=== PATIENT | male | born 1995 | race Hispanic/Latino ===

== ENCOUNTER 2017-08-19 01:31 | Emergency (ER) | payer SELFPAY ==
[~2017-08-19] VITALS: Ht 180.3 cm; Wt 69.5 kg
[2017-08-19 06:03] VITALS: BP 116/72
== END 2017-08-19 06:03 | disposition left against medical advice (07) | DRG 156 ==
LOC: EDBD 01:31 → ED 01:31
PROC: 09C4XZZ Extirpation of Matter from Left External Auditory Canal, External Approach (ICD-10-PCS; principal; 2017-08-19)
DX: T16.2XXA Foreign body in left ear, initial encounter (principal); X58.XXXA Exposure to other specified factors, initial encounter; Z91.19 Patient's noncompliance with other medical treatment and regimen

== ENCOUNTER 2017-08-24 13:29 | Emergency (ER) | payer SELFPAY ==
[~2017-08-24] VITALS: Ht 180.3 cm; Wt 72.0 kg
[2017-08-24] MEDS ORDERED: ULTRAM50 M1 PO (14:08)
[2017-08-24] MEDS ORDERED: AMOX/K CLAV875 M1 PO (14:08)
[2017-08-24 14:15] VITALS: BP 135/82
== END 2017-08-24 14:15 | disposition home or self-care (01) | DRG 153 ==
LOC: ED 13:29
DX: H66.92 Otitis media, unspecified, left ear (principal); F17.210 Nicotine dependence, cigarettes, uncomplicated

== ENCOUNTER 2020-12-18 16:20 | Emergency (ER) | payer SELFPAY ==
[~2020-12-18] VITALS: Ht 180.3 cm; Wt 71.0 kg
[~2020-12-18 16:20] MED LIST: AMOX/K CLAV875 M1 PO; ULTRAM50 M1 PO
[2020-12-18 18:35] VITALS: BP 132/79
== END 2020-12-18 18:35 | disposition home or self-care (01) | DRG 563 ==
LOC: ED 16:20
PROC: 0RSXXZZ Reposition Left Finger Phalangeal Joint, External Approach (ICD-10-PCS; principal; 2020-12-18)
DX: S63.277A Dislocation of unspecified interphalangeal joint of left little finger, initial encounter (principal); S50.812A Abrasion of left forearm, initial encounter; F17.210 Nicotine dependence, cigarettes, uncomplicated; V00.131A Fall from skateboard, initial encounter; Y93.51 Activity, roller skating (inline) and skateboarding; Y92.410 Unspecified street and highway as the place of occurrence of the external cause